=== PATIENT | female | born 1955 | race Caucasian/White ===

== ENCOUNTER 2018-05-13 14:46 | Emergency (ER) | END 2018-05-13 15:40 | disposition left against medical advice (07) ==

== ENCOUNTER 2018-07-05 13:02 | Emergency (ER) | payer OTHER ==
[~2018-07-05] VITALS: Ht 167.6 cm; Wt 69.1 kg
[2018-07-05 13:15] VITALS: Ht 167.6 cm; Wt 69.1 kg
[2018-07-05] MEDS ORDERED: KETOROLAC 30 MG INJ IM STA ×2 (16:54→17:01)
[2018-07-05] MEDS ORDERED: DEXAMETHASONE 10 MG/ML 1 ML INJ IM ONE (17:00)
--- NOTE | 2018-07-05 17:34 | ERD ---
ER Documentation Chief Complaint Chief Complaint Complains of back pain, ankle pain, dizzy, shoulder pain x 2 days HPI 62 year-old [female] coming in today with Chief Complaint: Wrist pain History of Present Illness: Patient with complaint of right wrist pain for 2 days. Patient reports pain as intermittent, with quality as soreness, sharpness, throbbing. Denies injury or trauma. Reports left hand dominant, but patient has reporting using affected extremity more recently still concerned with possibly overuse exacerbating her rheumatoid arthritis. Associated sym ptoms include right shoulder pain, right knee pain, back pain; patient reports "mainly here just for my wrist pain". Patient denies dizziness, reports that "I feel like the ground is moving like you are in a earthquake". Patient reports at home use of Naprosyn 500 mg twice daily, gives a little relief of pain. Review of systems: All systems were reviewed and are negative except for what is indicated in the history of present illness. Past Medical History: Rheumatoid arthritis, neuropathy, hyperlipidemia Social History: [Patient denies tobacco, alcohol, elicit drug use] Medications: [Reviewed as documented Nursing Notes]; patient reports to myself use of methotrexate once weekly, and enprel for rheumatoid arthritis; use of a statin drug for hyperlipidemia Allergies: [Reviewed as documented in Nursing Notes] Social Concerns: Denies ROS All systems reviewed and are negative except as per history of present illness. Allergies Allergies: Coded Allergies: Sulfa (Sulfonamide Antibiotics) (Verified Allergy, Intermediate, hives, 07/05/18) PMhx/Soc History of Surgery: No Hx Respiratory Disorders: No Hx Cardiac Disorders: No Hx Psychiatric Problems: No Hx Miscellaneous Medical Probl: Yes (neuropathy, oesteoarthritis) Hx Alcohol Use: No Hx Substance Use: No Hx Tobacco Use: No FmHx Family History: coronary disease, other; No diabetes Physical Exam Vitals Vital Signs Date Temp Pulse Resp B/P (MAP) Pulse Ox O2 O2 Flow FiO2 Time Delivery Rate 07/05/18 97.3 75 20 119/75 96 13:15 (90) Physical Exam Const: No acute distress Head: Atraumatic Eyes: Normal Conjunctiva ENT: Normal External Ears, Nose and Mouth. Neck: Full range of motion. No meningismus. Resp: Clear to auscultation bilaterally Cardio: Regular rate and rhythm, no murmurs Abd: Soft, non tender, non distended. Normal bowel sounds Skin: No petechiae or rashes Back: No midline or flank tenderness Ext: No cyanosis, or edema; tender to palpation to right wrist Neur: Awake and alert cranial nerves intact Psych: Normal Mood and Affect Results 24 hrs Current Medications Medications Dose Sig/Letitia Start Time Status Last (Trade) Ordered Route PRN Stop Time Admin Dose Reason Admin Ketorolac 30 mg ONCE STAT 07/05/18 DC Tromethamine IM 16:54 (Toradol) 07/05/18 17:04 8 mg ONCE ONCE 07/05/18 DC 07/05/18 Dexamethasone IM 17:00 17:08 (Decadron) 07/05/18 17:01 Ketorolac 30 mg ONCE STAT 07/05/18 DC 07/05/18 Tromethamine IM 17:01 17:08 (Toradol) 07/05/18 17:04 Procedures/MDM Patient with complaint of wrist pain ED course includes a thorough examination and history; anti-inflammatories, steroid, Jarrett wrap Otherwise healthy patient presenting with constellation of symptoms likely representing uncomplicated exacerbation of rheumatoid arthritis as characterized by history, physical exam findings [, radiologic findings]. No respiratory distress, otherwise relatively well appearing and nontoxic. Patient educated on diagnoses, prescriptions, follow-up care, return precautions. Continue use of anti-inflammatories at home with strict use of Jarrett wrap. strict return precautions given for worsening condition; questions answered discharge. Disposition for discharge with followup in 2-3 days with PCP/clinic and/or tie puller for further care and workup. Departure Diagnosis: Primary Impression: Wrist pain, right Additional Impression: Rheumatoid arthritis Rheumatoid arthritis location: multiple sites Rheumatoid factor presence: unspecified presence Qualified Codes: M06.9 - Rheumatoid arthritis, unspecified Condition: Stable TIM GREEN NP Jul 05, 2018 17:34
[2018-07-05 18:47] VITALS: BP 124/83; PULSE 73; RESP 18
== END 2018-07-05 18:48 | disposition home or self-care (01) ==
LOC: FTE 13:02
DX: M25.531 Pain in right wrist (principal); M06.9 Rheumatoid arthritis, unspecified
CPT/HCPCS: 73110; 96372; J1100; J1885; Z7502